=== PATIENT | male | born 1960 | race Caucasian/White ===

== ENCOUNTER 2018-04-05 11:56 | Day surgery (SDC) | payer BC | END 2018-04-05 12:45 | disposition home or self-care (01) | LOC: SDS 11:56 | DX: N32.9 Bladder disorder, unspecified (principal); Z53.9 Procedure and treatment not carried out, unspecified reason ==

== ENCOUNTER 2018-04-11 05:51 | Day surgery (SDC) | payer BC ==
[2018-04-11] MEDS ORDERED: CIPROFLOXACIN 400MG/D5W 200 ML IVPB (06:00)
[2018-04-11] MEDS ORDERED: IOHEXOL 350 100 ML BTL PO (07:00)
[2018-04-11] MEDS ORDERED: LIDOCAINE 1% (MDV) 20 ML INJ (07:52)
[2018-04-11] MEDS ORDERED: ETOMIDATE 20 MG INJ (07:52)
[2018-04-11] MEDS ORDERED: ROCURONIUM 50 MG INJ (07:52)
[2018-04-11] MEDS ORDERED: ONDANSETRON 4 MG INJ (09:06)
[2018-04-11] MEDS ORDERED: SUGAMMADEX SODIUM 200 MG/2 ML VIAL IV (09:06)
[2018-04-11] MEDS ORDERED: IOHEXOL 300MG/ML 30 ML BTL (09:27)
[2018-04-11] MEDS ORDERED: CEFAZOLIN 1 GM INJ (09:58)
[2018-04-11] MEDS ORDERED: EPHEDrine SULFATE 50 MG/5 ML SYG (09:59)
[2018-04-11] MEDS ORDERED: CIPROFLOXACIN 400MG/D5W 200 ML (09:59)
[2018-04-11] MEDS: IOHEXOL 300MG/ML 30 ML BTL (10:16)
[2018-04-11] MEDS ORDERED: LABETALOL HCL 20MG INJ IV (11:00)
[2018-04-11] MEDS ORDERED: hydrALAzine 20 MG INJ IV (11:00)
[2018-04-11] MEDS: HYDROmorphONE 1 MG/5 ML IV SYRINGE IV (11:20)
== END 2018-04-11 12:28 | disposition home or self-care (01) ==
LOC: SDS 05:51
DX: N35.9 Urethral stricture, unspecified (principal)
CPT/HCPCS: 52281; 74430; 87086